=== PATIENT | female | born 2005 | race Caucasian/White ===

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

== ENCOUNTER 2024-12-08 16:06 | Emergency (ER) | payer SELFPAY ==
[2024-12-08] MEDS ORDERED: DERMABOND SKIN ADHESIVE TOP ONE (16:20)
--- NOTE | 2024-12-08 16:33 | EDPHYS ---
Physician Documentation [facility] Name: Marixa Beasley Age: 19 yrs Sex: Female : 2005 Arrival Date: 12/08/2024 Time: 16:06 Bed 11 Private MD: ED Physician Dane Redman HPI: 12/08 16:44 This 19 yrs old Female presents to ER via Ambulatory with complaints of Laceration To kb Hand, Dizziness. 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 Denies any other injuries. 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 - Infectious Disease History:: Denies. - Social history:: Smoking status: Patient denies any tobacco usage or history of. ROS: 16:42 Constitutional: As per HPI kb Exam: 16:42 Constitutional: This is a well developed, well nourished patient who is awake, alert, kb and in no acute distress. Head/Face: Normocephalic, atraumatic. ENT: Moist Mucous membranes Cardiovascular: Regular rate Respiratory: Respirations even and unlabored. No increased work of breathing. Talking in full sentences MS/ Extremity: Pulses equal, no cyanosis. Neurovascular intact. Full, normal range of motion. Neuro: Awake and alert, GCS 15, oriented to person, place, time, and situation. 16:42 Skin: injury, laceration(s), the wound is approximately 1.5 cm(s), of the palm of left hand, that can be described as clean, linear, without bleeding, Vital Signs: 16:20 BP 125 / 80; Pulse 90; Resp 16; Temp 97.8; Pulse Ox 98% ; Weight 39.46 kg; Height 5 ft. db 0 in. ; 16:20 Body Mass Index 16.99 (39.46 kg, 152.4 cm) db Laceration: 16:43 Wound Repair of 1.5cm ( 0.6in ) subcutaneous laceration to palm of left hand. Linear kb shaped.. Distal neuro/vascular/tendon intact. Wound prep: Extensive cleansing with hibiclenz by me, Wound irrigation with saline by me. Skin closed with thin layer Adhesive skin closure using Dermabond. Dressed with steristrips. Patient tolerated well. MDM: 16:10 Medical Screening Exam initiated kb 16:43 Differential diagnosis: superficial laceration, tendon injury, vascular injury. Data kb reviewed: vital signs, nurses notes. Historians other than the Patient: Spouse/Significant Other: significant other. Counseling: I had a detailed discussion with the patient and/or guardian regarding the historical points, exam findings, and any diagnostic results supporting the discharge/admit diagnosis, the need for outpatient follow up, a family practitioner, to return to the emergency department if symptoms worsen or persist or if there are any questions or concerns that arise at home. 16:44 ED course: Sutures were recommended, but pt does not want any needle sticks so she kb requested dermabond. 12/08 16:14 Order name: Dressing - Wound; Complete Time: 16:34 kb 12/08 16:14 Order name: Gloves, Sterile; Complete Time: 16:34 kb Administered Medications: 16:31 Not Given (Patient Refused): lidocaine(1 %) 1 vials 5 ml Infiltration once; to bedside me1 16:31 Not Given (Patient Refused): boostrix tdap0.5 ml IM once; as a single dose me1 Disposition: 17:18 Co-signature as Attending Physician, Dane Redman MD I reviewed the patient's care rt provided by the Advanced Practice Provider and agree with the diagnosis and treatment plan. Disposition Summary: 12/08/24 16:32 Discharge Ordered Notes: Location: Home kb Condition: Stable kb Diagnosis - Laceration without foreign body of left hand kb Followup: kb - With: Emergency Department - When: As needed - Reason: Worsening of condition Followup: kb - With: Private Physician - When: 2 - 3 days - Reason: Recheck today's complaints, Continuance of care, Re-evaluation by your physician Discharge Instructions: - Discharge Summary Sheet kb - Laceration Care, Adult, [id number] kb Forms: - Medication Reconciliation Form kb - Antibiotic Education kb - Prescription Opioid Use kb - Patient Portal Instructions kb - Leadership Thank You Letter kb Signatures: Lori Lockett FNP-C KALIN-Mellisa Oakley, RN RN db Dane Redman MD MD rt Leanna Lowe RN me1 Corrections: (The following items were deleted from the chart) 16:34 16:14 Sutures, Prolene ordered. kb me1 16:35 16:14 Setup Suture Tray ordered. kb me1
--- NOTE | 2024-12-08 16:33 | ER ---
Nurse's Notes [facility] Name: Marixa Beasley Age: 19 yrs Sex: Female : 2005 Arrival Date: 12/08/2024 Time: 16:06 Bed 11 Private MD: Diagnosis: Laceration without foreign body of left hand Presentation: 12/08 16:20 Chief complaint: Patient states: LEFT HAND LACERATION. Coronavirus screen: Client db denies travel out of the [place] in the last 14 days. At this time, the client does not indicate any symptoms associated with coronavirus-19. Ebola Screen: Patient negative for fever greater than or equal to 101.5 degrees Fahrenheit, and additional compatible Ebola Virus Disease symptoms Patient denies exposure to infectious person. Patient denies travel to an Ebola-affected area in the 21 days before illness onset. No symptoms or risks identified at this time. Complicating Factors: There are no complicating factors for this patient. Initial Sepsis Screen: Does the patient meet any 2 criteria? No. Patient's initial sepsis screen is negative. Does the patient have a suspected source of infection? No. Patient's initial sepsis screen is negative. Risk Assessment: Do you want to hurt yourself or someone else? Patient reports no desire to harm self or others. Onset of symptoms was December 08, 2024. 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 - Infectious Disease History:: Denies. - Social history:: Smoking status: Patient denies any tobacco usage or history of. Screenin:32 [facility] ED Fall Risk Assessment (Adult) History of falling in the last 3 months, me1 including since admission No falls in past 3 months (0 pts) Confusion or Disorientation No (0 pts) Intoxicated or Sedated No (0 pts) Impaired Gait No (0 pts) Mobility Assist Device Used No (0 pt) Altered Elimination No (0 pt) Score/Fall Risk Level 0 - 2 = Low Risk Maintained a safe environment, Provided non-skid footwear, Hourly rounding (assess needs \T\ fall precautionary measures) done. Abuse screen: Denies threats or abuse. Nutritional screening: No deficits noted. Tuberculosis screening: No symptoms or risk factors identified. Assessment: 16:32 General: Appears in no apparent distress. 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 Pain: Complains of pain in left hand Pain does not radiate. Pain currently is 7 out of 10 on a pain scale. Quality of pain is described as sharp, Pain began suddenly, Is continuous. Neuro: Level of Consciousness is awake, alert, obeys commands, Oriented to person, place, time, situation, Appropriate for age Reports dizziness, right after cutting herself. Cardiovascular: Patient's skin is warm and dry. Respiratory: Airway is patent Respiratory effort is even, unlabored, Respiratory pattern is regular, symmetrical. GI: No signs and/or symptoms were reported involving the gastrointestinal system. : No signs and/or symptoms were reported regarding the genitourinary system. EENT: No signs and/or symptoms were reported regarding the EENT system. Derm: Wound noted palmar aspect of proximal phalanx of left thumb Wound is laceration. Musculoskeletal: Reports pain in left hand. Injury Description: Laceration is clean, not bleeding. Vital Signs: 16:20 BP 125 / 80; Pulse 90; Resp 16; Temp 97.8; Pulse Ox 98% ; Weight 39.46 kg; Height 5 ft. db 0 in. ; 16:20 Body Mass Index 16.99 (39.46 kg, 152.4 cm) db ED Course: 16:10 Patient arrived in ED. al6 16:10 Lori Lockett FNP-C [facility] kb 16:10 Dane Redman MD is Attending Physician. kb 16:23 Triage completed. db 16:23 Arm band placed on Patient placed in an exam room. db 16:29 Leanna Lowe, LUCILLE is Primary Nurse. me1 16:32 Patient has correct armband on for positive identification. Bed in low position. Call me1 light in reach. Side rails up X2. Provided Education on: POC. Verbalized understanding.. 16:32 No provider procedures requiring assistance completed. Patient did not have IV access me1 during this emergency room visit. Administered Medications: 16:31 Not Given (Patient Refused): lidocaine(1 %) 1 vials 5 ml Infiltration once; to bedside me1 16:31 Not Given (Patient Refused): boostrix tdap0.5 ml IM once; as a single dose me1 Medication: 16:32 VIS not applicable for this client. me1 Outcome: 16:32 Discharge ordered by . ruben 16:38 Discharged to home ambulatory, with family, with significant other, me1 16:38 Condition: stable 16:38 Discharge instructions given to patient, family, significant other, Instructed on discharge instructions, follow up and referral plans. wound care, Demonstrated understanding of instructions, follow-up care, wound care, 16:39 Patient left the ED. me1 Signatures: Lori Lockett, EYELET ROW MARKER-C EYELET ROW MARKER-CkMellisa Hernandez RN RN Leanna Lowe RN RN me1 Libertad Cummings6
[2024-12-08 18:32] VITALS: BP 125/80; TEMP 97.8; O2SAT 98
== END 2024-12-08 16:39 | disposition home or self-care (01) ==
LOC: ER 16:06
DX: S61.412A Laceration without foreign body of left hand, initial encounter (principal)

== ENCOUNTER 2025-03-14 03:55 | Emergency (ER) | payer BC ==
[2025-03-14] MEDS ORDERED: FAMOTIDINE 20 MG/2 ML VIAL IV ONE (04:26)
[2025-03-14] MEDS ORDERED: NA CHLORIDE 0.9% 1,000 ML ONE (04:26)
[2025-03-14] MEDS ORDERED: ONDANSETRON 4 MG/2 ML VIAL ONE (04:26)
[2025-03-14] MEDS ORDERED: KETOROLAC 30 MG/ML INJ ONE (04:26)
[2025-03-14 04:50] LABS: Absolute Lymphocytes (CBC) 1.4 K/uL (0.7-4.9); Hematocrit 37.2 % (36.0-45.0); Hemoglobin 12.8 g/dL (12.0-15.0); MCH 30.5 pg (27.0-35.0); MCHC 34.5 g/dL (32.0-36.0); MCV 88.3 fL (80-100); MPV 8.4 fL (7.6-11.3); Nucleated RBC Absolute Count 0.0 (0-0); Nucleated Red Blood Cells % 0.0 % (0-0); RBC Red Blood Cell Count 4.21 M/uL (3.86-4.86); White Blood Count 10.80 thou/uL (4.3-10.9)
[2025-03-14 05:03] LABS: ALT/SGPT 18.0 U/L (13-56); AST/SGOT 13.0 U/L (15-37); Albumin 4.3 g/dL (3.4-5.0); Albumin/Globulin Ratio 1.2 (1.1-1.8); Alkaline Phosphatase 52.0 U/L (45-117); Anion Gap 11.3 mEq/L (5.0-15.0); BUN Blood Urea Nitrogen 7.0 mg/dL (7-18); Globulin 3.7 g/dL (2.3-3.5); Glucose Level 185.0 mg/dL (74-106); Lipase 24.0 U/L (13-75); Potassium 3.3 mEq/L (3.5-5.1)
[2025-03-14] MEDS ORDERED: PROMETHAZINE INJ 25 MG/ML AMP ONE (05:42)
--- NOTE | 2025-03-14 06:54 | RAD REPORT ---
EXAM DESCRIPTION: Abdomen Pelvis W Contrast CLINICAL HISTORY: ABD PAIN COMPARISON: None Available. TECHNIQUE: CT of the abdomen and pelvis performed following IV administration of iodinated contrast . This exam was performed according to our departmental dose-optimization program, which includes automated exposure control, adjustment of the mA and/or kV according to patient size and/or use of it erative reconstruction technique. FINDINGS: Lung Bases: The visualized lung bases are clear. Bones: No acute osseous abnormality identified. Abdomen: Liver: The liver has normal size and density. Gallbladder: No calcified gallstones. Spleen, Pancreas, and Adrenal Glands: The spleen, pancreas, and adrenal glands are unremarkable. Kidneys: No hydronephrosis or obstructing calculus. Vasculature: The aorta and IVC have normal caliber and position. The portal vein is patent. The pro ximal visceral and renal arteries are patent. Stomach: The stomach and duodenum have normal course. Other: No free intraperitoneal air. Small amount of free fluid. Pelvis: Bladder: Urinary bladder is unremarkable. Bowel: No dilated loops of large or small bowel. Moderate amount of stool. Appendix: Normal appendix. Pelvis: 2.1 cm right ovarian corpus luteal cyst. Uterus is not enlarged. IMPRESSION: 1. 2.1 cm right ovarian corpus luteal cyst. No follow-up imaging for the structure recommended. 2. Small amount of free pelvic fluid. This may be physiologic. Electronically signed by: Ricardo Don DO 03/14/2025 06:40 AM CDT 4ZDM Due to temporary technical issues with the PACS/Nomin[employer] reporting system, reports are being william d by the in-house radiologist without review as a courtesy to ensure prompt reporting the interpreting radiologist is fully responsible for the content of the report. Transcribed Date/Time: 03/14/2025 6:53 AM
--- NOTE | 2025-03-14 06:58 | EDPHYS ---
Physician Documentation [facility] Name: Marixa Beasley Age: 19 yrs Sex: Female : 2005 Arrival Date: 03/14/2025 Time: 03:55 Bed 3 Private MD: ED Physician Moustapha Sanchez HPI: 03/14 04:12 This 19 yrs old Female presents to ER via Unassigned with complaints of Pelvic Pain, ms3 Nausea/Vomiting, Pt has h/o endometriosis. 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 Patient has had consistent vomiting since that time. Patient states her discomfort is a 5/10 and states her stomach feels uneasy. She denies any alleviating or inciting factors.. 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 - Infectious Disease History:: Denies. - Social history:: Smoking status: Patient denies any tobacco usage or history of. ROS: 04:12 Cardiovascular: Negative for chest pain, and palpitations. Respiratory: Negative for ms3 shortness of breath, cough, wheezing, and pleuritic chest pain, 04:12 MS/Extremity: Negative for injury and deformity, Skin: Negative for injury, rash, and discoloration, 04:12 Constitutional: Positive for chills, 04:12 Abdomen/GI: Positive for abdominal pain, nausea and vomiting, Exam: 04:12 Constitutional: This is a well developed, well nourished patient who is awake, alert, ms3 and in no acute distress. Cardiovascular: Regular rate and rhythm with a normal S1 and S2. No gallops, murmurs, or rubs. Normal PMI, no JVD. No pulse deficits. Respiratory: Lungs have equal breath sounds bilaterally, clear to auscultation and percussion. No rales, rhonchi or wheezes noted. No increased work of breathing, no retractions or nasal flaring. 04:12 Skin: Warm, dry with normal turgor. Normal color with no rashes, no lesions, and no evidence of cellulitis. 04:12 Abdomen/GI: Inspection: abdomen appears normal, Bowel sounds: normal, in all quadrants, Palpation: mild abdominal tenderness, in all quadrants, Vital Signs: 04:27 BP 118 / 76; Pulse 74; Resp 16; Temp 98.3; Pulse Ox 99% ; Weight 45.36 kg; Height 5 ft. vc1 0 in. ; Pain 5/10; 06:57 BP 116 / 65; Pulse 65; Resp 18; Pulse Ox 99% on R/A; kd4 04:27 Body Mass Index 19.53 (45.36 kg, 152.4 cm) vc1 04:27 Pain Scale: Adult vc1 Aby Coma Score: 05:53 Eye Response: spontaneous(4). Motor Response: obeys commands(6). Verbal Response: kd4 oriented(5). Total: 15. MDM: 04:12 Medical Screening Exam initiated ms3 04:12 Differential diagnosis: Nonspecific abd pain, gastritis, pancreatitis, appendicitis, ms3 diverticulitis, viral gastroenteritis. 03/14 04:12 Order name: CBC with Diff; Complete Time: 04:56 ms3 03/14 04:12 Order name: CMP; Complete Time: 05:03 ms3 03/14 04:12 Order name: Lipase; Complete Time: 05:03 ms3 03/14 04:12 Order name: Test, Serum; Complete Time: 05:22 ms3 03/14 04:12 Order name: CT Abd/Pelvis - IV Contrast Only ms3 03/14 04:12 Order name: IV Saline Lock; Complete Time: 04:39 ms3 03/14 04:12 Order name: Labs collected and sent; Complete Time: 04:39 ms3 Administered Medications: 04:33 Drug: Famotidine IVP 20 mg IVP once; dilute with 10 mL 0.9% NaCl; give over 2 minutes kd4 Route: IVP; Site: left antecubital; 06:59 Follow up: Response: No adverse reaction kd4 04:33 Drug: TORadol - Ketorolac IVP 15 mg IVP once Route: IVP; Site: left antecubital; kd4 06:59 Follow up: Response: No adverse reaction kd4 04:33 Drug: Ondansetron IVP 4 mg IVP once; over 2 minutes Route: IVP; Site: left antecubital; kd4 06:59 Follow up: Response: No adverse reaction kd4 04:33 Drug: NS 0.9% IV 1000 ml IV at 1 bolus Per protocol; to be given as a bolus over 60 kd4 minutes Route: IV; Rate: 1 bolus; Site: left antecubital; 06:59 Follow up: IV Status: Completed infusion kd4 05:49 Drug: Promethazine IM 12.5 mg IM once Route: IM; Site: left deltoid; kd4 06:59 Follow up: Response: No adverse reaction kd4 Disposition Summary: 03/14/25 06:58 Discharge Ordered Notes: Location: Home ms3 Condition: Stable ms3 Diagnosis - Nausea with vomiting, unspecified ms3 - Abdominal pain, unspecified ms3 Followup: ms3 - With: Adelfo Bernabe DO - When: 2 - 3 days - Reason: Recheck today's complaints Discharge Instructions: - Discharge Summary Sheet ms3 - Abdominal Pain, Adult ms3 - Nausea and Vomiting, Adult ms3 Forms: - Medication Reconciliation Form ms3 - Antibiotic Education ms3 - Prescription Opioid Use ms3 - Patient Portal Instructions ms3 - Leadership Thank You Letter ms3 Prescriptions: - promethazine 12.5 mg Rectal suppository - insert 1 suppository RECTAL route every 6 hours as needed for nausea and ms3 vomiting; 10 suppository; Refills: 0, Product Selection Permitted Signatures: Dispatcher [employer] EDMS Moustapha Sanchez DO DO ms3 Kitty Arango RN RN vc1 Reece Oreilly RN RN kd4 Corrections: (The following items were deleted from the chart) 04:30 04:05 Pelvis Complete+US.RAD.BRZ ordered. EDMS EDMS
--- NOTE | 2025-03-14 06:58 | ER ---
Nurse's Notes [facility] Name: Marixa Beasley Age: 19 yrs Sex: Female : 2005 Arrival Date: 03/14/2025 Time: 03:55 Bed 3 Private MD: Diagnosis: Nausea with vomiting, unspecified;Abdominal pain, unspecified Presentation: 03/14 04:27 Chief complaint: Patient states: Stomach feels really uncomfortable and I was up all vc1 night vomiting. Coronavirus screen: Client denies travel out of the [place] in the last 14 days. At this time, the client does not indicate any symptoms associated with coronavirus-19. Ebola Screen: Patient negative for fever greater than or equal to 101.5 degrees Fahrenheit, and additional compatible Ebola Virus Disease symptoms Patient denies exposure to infectious person. Patient denies travel to an Ebola-affected area in the 21 days before illness onset. No symptoms or risks identified at this time. Initial Sepsis Screen: Does the patient meet any 2 criteria? No. Patient's initial sepsis screen is negative. Does the patient have a suspected source of infection? No. Patient's initial sepsis screen is negative. Risk Assessment: Do you want to hurt yourself or someone else? Patient reports no desire to harm self or others. Onset of symptoms was March 13, 2025. 04:27 Method Of Arrival: Ambulatory vc1 04:27 Acuity: CÉSAR 3 vc1 Triage Assessment: 04:33 General: Appears uncomfortable, slender, well groomed, well developed, well nourished, vc1 Behavior is calm, cooperative, appropriate for age. Pain: Complains of pain in abdomen Pain does not radiate. Pain currently is 5 out of 10 on a pain scale. Quality of pain is described as aching. EENT: No deficits noted. No signs and/or symptoms were reported regarding the EENT system. Neuro: Level of Consciousness is awake, alert, obeys commands, Oriented to person, place, time, situation, Appropriate for age. Cardiovascular: Patient's skin is warm and dry. Respiratory: Airway is patent Respiratory effort is even, unlabored, Respiratory pattern is regular, symmetrical. GI: Reports lower abdominal pain, upper abdominal pain, vomiting. : No deficits noted. No signs and/or symptoms were reported regarding the genitourinary system. Derm: Skin is intact, is healthy with good turgor, Skin is dry, Skin is normal, Skin temperature is warm. Musculoskeletal: Circulation, motion, and sensation intact. Range of motion: intact in all extremities. 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 - Infectious Disease History:: Denies. - Social history:: Smoking status: Patient denies any tobacco usage or history of. Screenin:32 Abuse screen: Denies threats or abuse. Nutritional screening: No deficits noted. vc1 Tuberculosis screening: No symptoms or risk factors identified. 05:53 [facility] ED Fall Risk Assessment (Adult) History of falling in the last 3 months, kd4 including since admission No falls in past 3 months (0 pts) Confusion or Disorientation No (0 pts) Intoxicated or Sedated No (0 pts) Impaired Gait No (0 pts) Mobility Assist Device Used No (0 pt) Altered Elimination No (0 pt) Score/Fall Risk Level 0 - 2 = Low Risk Oriented to surroundings, Maintained a safe environment, Educated pt \T\ family on fall prevention, incl call for assistance when getting out of bed, Assessed \T\ reinforced patient's understanding of fall precautions. Assessment: 05:53 GI: Reports lower abdominal pain, nausea, vomiting. kd4 06:57 GI: Reports lower abdominal pain, nausea, vomiting. kd4 07:08 General: Patient verbalizes understanding of d/c instruction. kd4 Vital Signs: 04:27 BP 118 / 76; Pulse 74; Resp 16; Temp 98.3; Pulse Ox 99% ; Weight 45.36 kg; Height 5 ft. vc1 0 in. ; Pain 5/10; 06:57 BP 116 / 65; Pulse 65; Resp 18; Pulse Ox 99% on R/A; kd4 04:27 Body Mass Index 19.53 (45.36 kg, 152.4 cm) vc1 04:27 Pain Scale: Adult vc1 Aby Coma Score: 05:53 Eye Response: spontaneous(4). Motor Response: obeys commands(6). Verbal Response: kd4 oriented(5). Total: 15. ED Course: 03:59 Patient arrived in ED. [email or web address] 04:03 Moustapha Sanchez DO is Attending Physician. ms3 04:29 Triage completed. vc1 04:31 Arm band placed on left wrist. vc1 05:53 Patient has correct armband on for positive identification. Call light in reach. Side kd4 rails up X2. Pulse ox on. NIBP on. 05:53 No provider procedures requiring assistance completed. Inserted saline lock: 22 gauge kd4 in left antecubital area, using aseptic technique. 05:55 CT Abd/Pelvis - IV Contrast Only In Process Unspecified. EDMS 06:58 Adelfo Bernabe DO is Referral Physician. ms3 07:08 Provided Education on: D/c instruction. kd4 07:08 IV discontinued. kd4 Administered Medications: 04:33 Drug: Famotidine IVP 20 mg IVP once; dilute with 10 mL 0.9% NaCl; give over 2 minutes kd4 Route: IVP; Site: left antecubital; 06:59 Follow up: Response: No adverse reaction kd4 04:33 Drug: TORadol - Ketorolac IVP 15 mg IVP once Route: IVP; Site: left antecubital; kd4 06:59 Follow up: Response: No adverse reaction kd4 04:33 Drug: Ondansetron IVP 4 mg IVP once; over 2 minutes Route: IVP; Site: left antecubital; kd4 06:59 Follow up: Response: No adverse reaction kd4 04:33 Drug: NS 0.9% IV 1000 ml IV at 1 bolus Per protocol; to be given as a bolus over 60 kd4 minutes Route: IV; Rate: 1 bolus; Site: left antecubital; 06:59 Follow up: IV Status: Completed infusion kd4 05:49 Drug: Promethazine IM 12.5 mg IM once Route: IM; Site: left deltoid; kd4 06:59 Follow up: Response: No adverse reaction kd4 Medication: 05:53 VIS not applicable for this client. kd4 Outcome: 06:57 Condition: stable kd4 06:58 Discharge ordered by . ms3 07:07 Discharged to home ambulatory, with family, kd4 07:07 Discharge instructions given to patient, Instructed on discharge instructions, follow up and referral plans. Demonstrated understanding of instructions, follow-up care, Prescriptions given X 07:09 Patient left the ED. kd4 Signatures: Dispatcher [employer] EDMS Moustapha Sanchez DO DO ms3 Shahnaz Alva jj6 Kitty Arango RN RN vc1 Reece Oreilly RN RN kd4
[2025-03-14 07:41] VITALS: O2SAT 99
[2025-03-14 07:42] VITALS: BP 118/76; TEMP 98.3
== END 2025-03-14 07:09 | disposition home or self-care (01) ==
LOC: ER 03:55
DX: R11.2 Nausea with vomiting, unspecified (principal); R10.30 Lower abdominal pain, unspecified
CPT/HCPCS: 96361; 85025; 36415; 84703; 83690; 80053; 74177; 96375; 96372; 96374; 99284; Q9967; J2550; J2405; J7030

== ENCOUNTER 2025-03-15 22:04 | Inpatient (IN) | payer BC, MEDICARE ==
[2025-03-15] MEDS ORDERED: NA CHLORIDE 0.9% 1,000 ML ONE (22:35)
[2025-03-15 23:01] LABS: Urine Microscopic Reflex YN NO UMIC
[2025-03-15 23:03] LABS: Urine Culture Reflex Order REFLEXED
[2025-03-15 23:06] LABS: Absolute Lymphocytes (CBC) 1.7 K/uL (0.7-4.9); Hematocrit 35.8 % (36.0-45.0); Hemoglobin 12.2 g/dL (12.0-15.0); MCH 30.3 pg (27.0-35.0); MCHC 34.1 g/dL (32.0-36.0); MCV 88.9 fL (80-100); MPV 8.8 fL (7.6-11.3); Nucleated RBC Absolute Count 0.0 (0-0); Nucleated Red Blood Cells % 0.0 % (0-0); RBC Red Blood Cell Count 4.03 M/uL (3.86-4.86); White Blood Count 12.50 thou/uL (4.3-10.9)
[2025-03-15] MEDS ORDERED: CEFTRIAXONE 1000 MG/VIAL ONE (23:29)
[2025-03-15] MEDS ORDERED: NA CHLORIDE 0.9% 50 ML ONE (23:30)
[2025-03-15 23:37] LABS: ALT/SGPT 20.0 U/L (13-56); AST/SGOT 29.0 U/L (15-37); Albumin 4.5 g/dL (3.4-5.0); Albumin/Globulin Ratio 1.3 (1.1-1.8); Alkaline Phosphatase 48.0 U/L (45-117); Anion Gap 12.8 mEq/L (5.0-15.0); BUN Blood Urea Nitrogen 7.0 mg/dL (7-18); Globulin 3.4 g/dL (2.3-3.5); Glucose Level 112.0 mg/dL (74-106); Magnesium 2.2 mg/dL (1.6-2.4); Potassium 2.8 mEq/L (3.5-5.1)
[2025-03-16] MEDS ORDERED: POTASSIUM 25 MEQ EFFERV TAB ONE (00:02)
[2025-03-16] MEDS ORDERED: PROMETHAZINE INJ 25 MG/ML AMP ONE (00:25)
[2025-03-16] MEDS ORDERED: NA CHLORIDE 0.9% 1,000 ML ONE (00:25)
--- NOTE | 2025-03-16 00:38 | EDPHYS ---
Physician Documentation [facility] Name: Marixa Beasley Age: 19 yrs Sex: Female : 2005 Arrival Date: 03/15/2025 Time: 22:04 Bed 17 Private MD: ED Physician Williams Henry HPI: 03/15 22:44 This 19 yrs old Female presents to ER via Ambulatory with complaints of dr5 Abdominal Pain, Nausea/Vomiting. 22:44 The patient presents with abdominal pain in the epigastric area. Onset: The dr5 symptoms/episode began/occurred 2 day(s) ago. The patient has been recently seen by a physician: yesterday. 22:47 . 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 Patient reports that she was seen yesterday at this ER as well as [place] [facility] the morning of 03/15/25. [place] [facility] reported that she had hypokalemia and low magnesium. Patient reports that she was at home for couple hours without any pain or nausea and began having nausea again after drinking water. Patient reports that she was also treated for urinary tract infection this morning.. 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 - Infectious Disease History:: Denies. - Social history:: Smoking status: Reported history of juuling and/or vaping. ROS: 23:38 Constitutional: as per hpi dr5 Exam: 23:38 Constitutional: This is a well developed, well nourished patient who is awake, alert, dr5 and in no acute distress. Head/Face: Normocephalic, atraumatic. Eyes: Pupils equal round and reactive to light, extra-ocular motions intact. Lids and lashes normal. Conjunctiva and sclera are non-icteric and not injected. Cornea within normal limits. Periorbital areas with no swelling, redness, or edema. Neck: Trachea midline, no thyromegaly or masses palpated, and no cervical lymphadenopathy. Supple, full range of motion without nuchal rigidity, or vertebral point tenderness. No Meningismus. Chest/axilla: Normal chest wall appearance and motion. Nontender with no deformity. No lesions are appreciated. Cardiovascular: Regular rate and rhythm with a normal S1 and S2. Normal PMI, no JVD. No pulse deficits. Respiratory: Lungs have equal breath sounds bilaterally, clear to auscultation. No rales, rhonchi or wheezes noted. No increased work of breathing, no retractions or nasal flaring. Back: No spinal tenderness. No costovertebral tenderness. Full range of motion. Skin: Warm, dry with normal turgor. Normal color with no rashes, no lesions, and no evidence of cellulitis. MS/ Extremity: Pulses equal, no cyanosis. Neurovascular intact. Full, normal range of motion. Neuro: Awake and alert, GCS 15, oriented to person, place, time, and situation. Cranial nerves II-XII grossly intact. Motor strength 5/5 in all extremities. Sensory grossly intact. Cerebellar exam normal. Normal gait. 23:38 Abdomen/GI: Inspection: abdomen appears normal, Bowel sounds: normal, Palpation: abdomen is soft and non-tender, in all quadrants, soft, in all quadrants, Vital Signs: 22:24 BP 127 / 68; Pulse 112; Resp 18; Temp 97.8; Pulse Ox 100% on R/A; Weight 40.82 kg; al5 Height 5 ft. 0 in. ; 22:30 BP 128 / 80; Pulse 64; Resp 17; Pulse Ox 100% on R/A; al5 23:00 BP 115 / 76; Pulse 81; Resp 20; Pulse Ox 98% on R/A; al5 23:30 BP 100 / 61; Pulse 75; Resp 19; Pulse Ox 98% on R/A; al5 03/16 00:00 BP 100 / 51; Pulse 63; Resp 18; Pulse Ox 99% on R/A; al5 01:00 BP 129 / 89; Pulse 61; Resp 15; Pulse Ox 100% on R/A; al5 03/15 22:24 Body Mass Index 17.58 (40.82 kg, 152.4 cm) al5 MDM: 03/15 22:09 Medical Screening Exam initiated dr5 03/16 00:34 Differential diagnosis: appendicitis, gastritis, urinary tract infection, Hypokalemia, dr5 electrolyte abnormality, gastroenteritis, cannabinoid hyperemesis syndrome. Data reviewed: vital signs, nurses notes, lab test result(s), CBC, white blood cell count, hemoglobin, hematocrit, platelets, electrolytes, sodium, potassium, chloride, serum bicarbonate, BUN, creatinine, serum glucose, urinalysis, bacteruria. Consideration of Admission/Observation Patient was admitted/placed on observation. Management of patient was discussed with the following: Hospitalist: Dr. Nicholas. I considered the following discharge prescriptions or medication management in the emergency department I discussed and recommended Over The Counter medications, Medications were administered in the Emergency Department. See MAR. Test considered but Not performed: CT: CT scan was considered but deferred due to being done yesterday.. Historians other than the Patient: Spouse/Significant Other: at bedside. Care significantly affected by the following chronic conditions: Thyroid Issue, Hashimotos Disease. Care significantly affected by the following Social Determinants of Health: Poor access to healthcare and/or lack of insurance, Poor access to transportation, Problems related to employment. Counseling: I had a detailed discussion with the patient and/or guardian regarding the historical points, exam findings, and any diagnostic results supporting the discharge/admit diagnosis, the presence of at least one elevated blood pressure reading (>120/80) during this emergency department visit, lab results, the need for further work-up and treatment in the hospital. Medication response: Potassium p.o.. Patient reported severe abdominal pain with nausea after administration of potassium. Response to treatment: the patient's symptoms have mildly improved after treatment. Special discussion: Based on the patient's Hx, exam, and Dx evaluation, there is no indication for emergent surgery or inpatient Tx. It is understood by the patient/guardian that if the Sx's persist or worsen they need to return immediately for re-evaluation. ED course: This is patient's third hospital visit in 24 hours. Patient was seen and present for yesterday, went to [place] ER this morning, and returned today for same symptoms. Patient's potassium level is lower. Will admit for p.o. intolerance as well as urinary tract infection.. 03/15 22:33 Order name: CBC with Diff; Complete Time: 23:28 dr5 03/15 22:33 Order name: CMP; Complete Time: 23:37 dr5 03/15 22:33 Order name: UA Rfx Tee Cult if indicated; Complete Time: 23:06 dr5 03/15 22:33 Order name: Magnesium; Complete Time: 23:37 dr5 03/15 23:06 Order name: Urine Culture EDMS 03/16 00:48 Order name: CBC with Automated Diff EDMS 03/16 00:48 Order name: CBC with Automated Diff EDMS 03/16 00:48 Order name: Comprehensive Metabolic Panel EDMS 03/16 00:48 Order name: Comprehensive Metabolic Panel EDMS Administered Medications: 03/15 22:43 Drug: NS 0.9% IV 1000 ml IV at 1000 ml once; to be given as a bolus over 60 minutes al5 Route: IV; Rate: 1000 ml; Site: left antecubital; 03/16 01:14 Follow up: Response: No adverse reaction; IV Status: Completed infusion; IV Intake: al5 1000ml 03/15 22:43 Drug: Droperidol IVP 1.25 mg IVP once Route: IVP; Site: right antecubital; al5 03/16 00:05 Follow up: Response: No adverse reaction; Pain is decreased; Nausea is decreased al5 03/15 23:35 Drug: Rocephin IV 1 grams IV at per protocol once; Given slow IV push per pharmacy al5 instructions Route: IV; Rate: per protocol; Site: left antecubital; 03/16 01:13 Follow up: Response: No adverse reaction; IV Status: Completed infusion; IV Intake: [id number] 00:04 Not Given (Physician Discretion): potassium [id number] meq PO once al5 00:05 Drug: Potassium PO Effervescent Tablet 50 mEq PO once; dissolve in 4 ounces of water or al5 juice Route: PO; 00:31 Follow up: Response: No adverse reaction; Nausea is increased; Nausea is increased; al5 provider notified and aware, nausea med order placed. patient initally c/o n/v unable to tolerate food and water upon triage 00:05 CANCELLED (Duplicate Order): potassiumeffervescent tablet 50 meq PO once; dissolve in 4 dr5 ounces of water or juice 00:30 Drug: Phenergan 25 mg IV at per protocol once; administer 30-60 minutes before al5 traveling {Note: added to rest of patient previous bag of fluids, around 300 mL of NS per provider discretion.} Route: IV; Rate: per protocol; Site: left antecubital; Follow up: Response: No adverse reaction; Nausea unchanged; IV Status: Completed al5 infusion; IV Intake: 300ml 01: Drug: NS 0.9% IV 1000 ml IV at 1000 ml once; to be given as a bolus over 60 minutes al5 Route: IV; Rate: 1000 ml; Site: left antecubital; Follow up: Response: No adverse reaction; IV Status: Infusion continued upon admission al5 01: Drug: Droperidol IVP 1.25 mg IVP once Route: IVP; Site: left antecubital; al5 : Follow up: Response: No adverse reaction al5 Disposition Summary: 03/16/25 00:38 Hospitalization Ordered Notes: Hospitalization Status: Inpatient Admission dr5 Provider: Samir Nicholas Condition: Stable dr5 Problem: new dr5 Symptoms: have worsened dr5 Bed/Room Type: Standard dr5 Location: Telemetry/MedSurg (Inpatient)(03/16/25 10:05) Room Assignment: 422(03/16/25 10:05) Diagnosis - Hypokalemia dr5 - UTI/ Urinary tract infection, site not specified dr5 - Nausea with vomiting, unspecified dr5 Forms: - Medication Reconciliation Form dr5 - SBAR form dr5 - Leadership Thank You Letter dr5 Signatures: Dispatcher [employer] EDRowan Domingo RN RN Graciela Brito RN RN Sarah Yang RN RN al5 Zen Chacko FNP-C FNP-5 Corrections: (The following items were deleted from the chart) 03/15 22:33 22:33 CBC+H.LAB.BRZ ordered. EDMS EDMS 22:33 22:33 COMPREHENSIVE METABOLIC PANEL+C.LAB.BRZ ordered. EDMS EDMS 22:33 22:33 UA Rfx Tee Cult if indicated+U.LAB.BRZ ordered. EDMS EDMS 22:33 22:33 MAGNESIUM+C.LAB.BRZ ordered. EDMS EDMS 03/16 00:05 00:05 Potassium PO Effervescent Tablet 50 mEq PO once; dissolve in 4 ounces of water or dr5 juice ordered. dr5 01:25 00:38 Telemetry/MedSurg (Inpatient) dr5 cg 01:25 00:38 dr5 cg 10:05 01:25 [facility] ER HOLD cg hb 10:05 01:25 ERHOLD- cg hb
--- NOTE | 2025-03-16 00:38 | ER ---
Nurse's Notes [facility] Name: Marixa Beasley Age: 19 yrs Sex: Female : 2005 Arrival Date: 03/15/2025 Time: 22:04 Bed 17 Private MD: Diagnosis: Hypokalemia;UTI/ Urinary tract infection, site not specified;Nausea with vomiting, unspecified Presentation: 03/15 22:24 Chief complaint: Patient states: c/o generalized abdominal pain along with n/v for the al5 past 2-3 days. has been seen multiple times for this recently and was told she had a L ovarian cyst, UTI, along with low electrolytes. Coronavirus screen: At this time, the client does not indicate any symptoms associated with coronavirus-19. Ebola Screen: No symptoms or risks identified at this time. Initial Sepsis Screen: Does the patient meet any 2 criteria? HR > 90 bpm. No. Patient's initial sepsis screen is negative. Does the patient have a suspected source of infection? No. Patient's initial sepsis screen is negative. Risk Assessment: Do you want to hurt yourself or someone else? Patient reports no desire to harm self or others. Onset of symptoms was March 12, 2025. 22:24 Method Of Arrival: Ambulatory al5 22:24 Acuity: CÉSAR 3 al5 Triage Assessment: 22:26 General: Appears in no apparent distress. uncomfortable, ill, slender, well groomed, al5 Behavior is cooperative, restless. Pain: Complains of pain in abdomen. EENT: No signs and/or symptoms were reported regarding the EENT system. Neuro: Level of Consciousness is awake, alert, obeys commands, Oriented to person, place, time, situation. Cardiovascular: Patient's skin is warm and dry. Respiratory: Airway is patent Respiratory effort is even, unlabored, Respiratory pattern is regular, symmetrical. GI: Abdomen is flat, non-distended, Abd is soft Abdomen is tender to palpation X 4 quads. Reports lower abdominal pain, upper abdominal pain, nausea, vomiting. : No signs and/or symptoms were reported regarding the genitourinary system. Derm: Skin is intact, is healthy with good turgor, Skin is dry, Skin is pale, Skin temperature is warm. Musculoskeletal: Circulation, motion, and sensation intact. Range of motion: intact in all extremities. 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 - Infectious Disease History:: Denies. - Social history:: Smoking status: Reported history of juuling and/or vaping. Screenin:28 [facility] ED Fall Risk Assessment (Adult) History of falling in the last 3 months, al5 including since admission No falls in past 3 months (0 pts) Confusion or Disorientation No (0 pts) Intoxicated or Sedated No (0 pts) Impaired Gait No (0 pts) Mobility Assist Device Used No (0 pt) Altered Elimination No (0 pt) Score/Fall Risk Level 0 - 2 = Low Risk Oriented to surroundings, Maintained a safe environment, Hourly rounding (assess needs \T\ fall precautionary measures) done. Abuse screen: Denies threats or abuse. Denies injuries from another. Nutritional screening: No deficits noted. Tuberculosis screening: No symptoms or risk factors identified. Assessment: 22:28 Reassessment: see triage assessment. al5 22:43 Reassessment: placed patient on nuclear monitoring technician at this time. al5 23:30 Reassessment: Patient appears in no apparent distress at this time. Patient and/or ss12 family updated on plan of care and expected duration. Pain level reassessed. Patient is alert, oriented x 3, equal unlabored respirations, skin warm/dry/pink. 03/16 00:20 Reassessment: Patient appears in no apparent distress at this time. Patient and/or al5 family updated on plan of care and expected duration. Pain level reassessed. Patient is alert, oriented x 3, equal unlabored respirations, skin warm/dry/pink. completed PO challenge. patient c/o nausea and is crying/screaming post potassium drink. PO challenge failed, notified provider. 01:14 Reassessment: Patient appears in no apparent distress at this time. No changes from al5 previously documented assessment. Patient and/or family updated on plan of care and expected duration. Pain level reassessed. Patient is alert, oriented x 3, equal unlabored respirations, skin warm/dry/pink. patient admitted, see [facility]. Vital Signs: 03/15 22:24 BP 127 / 68; Pulse 112; Resp 18; Temp 97.8; Pulse Ox 100% on R/A; Weight 40.82 kg; al5 Height 5 ft. 0 in. ; 22:30 BP 128 / 80; Pulse 64; Resp 17; Pulse Ox 100% on R/A; al5 23:00 BP 115 / 76; Pulse 81; Resp 20; Pulse Ox 98% on R/A; al5 23:30 BP 100 / 61; Pulse 75; Resp 19; Pulse Ox 98% on R/A; al5 03/16 00:00 BP 100 / 51; Pulse 63; Resp 18; Pulse Ox 99% on R/A; al5 01:00 BP 129 / 89; Pulse 61; Resp 15; Pulse Ox 100% on R/A; al5 03/15 22:24 Body Mass Index 17.58 (40.82 kg, 152.4 cm) al5 ED Course: 03/15 22:06 Patient arrived in ED. gm2 22:07 [facility]ack[facility]C [facility] 22:07 Williams Henry MD is Attending Physician. dr5 22:24 Uzair Dunne, LUCILLE is Primary Nurse. ss12 22:26 Triage completed. al5 22:26 Arm band placed on right wrist. Patient placed in the treatment room, in view of staff al5 members, on pulse oximetry. 22:27 Inserted saline lock: 20 gauge in left antecubital area, using aseptic technique. Blood ts3 collected. Flushed with 10 mL NS. 22:28 No provider procedures requiring assistance completed. al5 22:28 Patient has correct armband on for positive identification. Bed in low position. Call al5 light in reach. Side rails up X2. Provided Education on: plan of care. 22:40 Initial lab(s) drawn, by golf course laborer, sent to lab. ts3 22:40 Urine collected: clean catch specimen, sent to lab. ts3 03/16 00:37 Samir Nicholas MD is Hospitalizing Provider. dr5 01:14 Patient admitted, IV remains in place. al5 Administered Medications: 03/15 22:43 Drug: NS 0.9% IV 1000 ml IV at 1000 ml once; to be given as a bolus over 60 minutes al5 Route: IV; Rate: 1000 ml; Site: left antecubital; 03/16 01:14 Follow up: Response: No adverse reaction; IV Status: Completed infusion; IV Intake: al5 1000ml 03/15 22:43 Drug: Droperidol IVP 1.25 mg IVP once Route: IVP; Site: right antecubital; al5 03/16 00:05 Follow up: Response: No adverse reaction; Pain is decreased; Nausea is decreased al5 03/15 23:35 Drug: Rocephin IV 1 grams IV at per protocol once; Given slow IV push per pharmacy al5 instructions Route: IV; Rate: per protocol; Site: left antecubital; 03/16 01:13 Follow up: Response: No adverse reaction; IV Status: Completed infusion; IV Intake: [id number] 00:04 Not Given (Physician Discretion): potassium [id number] meq PO once al5 00:05 Drug: Potassium PO Effervescent Tablet 50 mEq PO once; dissolve in 4 ounces of water or al5 juice Route: PO; 00:31 Follow up: Response: No adverse reaction; Nausea is increased; Nausea is increased; al5 provider notified and aware, nausea med order placed. patient initally c/o n/v unable to tolerate food and water upon triage 00:05 CANCELLED (Duplicate Order): potassiumeffervescent tablet 50 meq PO once; dissolve in 4 dr5 ounces of water or juice 00:30 Drug: Phenergan 25 mg IV at per protocol once; administer 30-60 minutes before al5 traveling {Note: added to rest of patient previous bag of fluids, around 300 mL of NS per provider discretion.} Route: IV; Rate: per protocol; Site: left antecubital; :13 Follow up: Response: No adverse reaction; Nausea unchanged; IV Status: Completed al5 infusion; IV Intake: 300ml 01:13 Drug: NS 0.9% IV 1000 ml IV at 1000 ml once; to be given as a bolus over 60 minutes al5 Route: IV; Rate: 1000 ml; Site: left antecubital; :13 Follow up: Response: No adverse reaction; IV Status: Infusion continued upon admission al5 01:13 Drug: Droperidol IVP 1.25 mg IVP once Route: IVP; Site: left antecubital; al5 01:13 Follow up: Response: No adverse reaction al5 Medication: 03/15 22:28 VIS not applicable for this client. al5 Intake: 03/16 01:13 IV: 300ml; Total: 300ml. al5 01:13 IV: 50ml; Total: 350ml. al5 01:14 IV: 1000ml; Total: 1350ml. al5 Outcome: 00:38 Decision to Hospitalize by Provider. dr5 01:14 Admitted to ER Hold. Please see [facility] for further documentation. al5 01:14 Condition: stable 01:14 Instructed on the need for admit, 10:53 Admitted to Tele accompanied by nurse, via wheelchair, room 422, Report called to by bp Gregg RN 10:53 Condition: stable 10:53 Instructed on the need for admit, 10:54 Patient left the ED. bp Signatures: River Avilez, RN RN Maryanne Jj 2 Sarah Yang RN RN al5 Zen Chacko, LOG LOADER-C LOG LOADER-Cdr5 Chelle Chávez ts3 Uzair Dunne, RN RN ss12
[2025-03-16] MEDS ORDERED: ACETAMINOPHEN 325 MG TABLET PO PRN (00:42)
--- NOTE | 2025-03-16 00:48 | P.HP ---
Certification for Inpatient Patient admitted to: Observation With expected LOS: <2 Midnights Practitioner: I am a practitioner with admitting privileges, knowledge of patient current condition, hospital course, and medical plan of care. 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 Patient had multiple ER visits for the same complaint but was not getting better. Denies any chest pain shortness of breath. No diarrhea. No sick contacts. Patient was assessed in the ER and found to have UTI and hypokalemia and was admitted for further management Allergies azithromycin Allergy (Unverified 12/16/16 04:10) Unknown Penicillins Allergy (Unverified 11/01/14 21:41) Unknown Erythromycin Allergy (Uncoded 10/12/16 21:58) Unknown Home Medications: NK [No Home Meds] 03/16/25 - Past Medical/Surgical History Past Medical History: Reviewed- Non-Contributory Past Surgical History: Reviewed- Non-Contributory - Social History Smoking Status: Never smoker Review of Systems 10-point ROS is otherwise unremarkable Physical Examination - Vital Signs Temperature: 98.4 F Blood Pressure: 126/67 Pulse: 78 Respirations: 18 Pulse Ox (%): 94 - Physical Exam General: Alert, In no apparent distress, Cooperative HEENT: Atraumatic, Normocephalic Neck: Supple Respiratory: Clear to auscultation bilaterally, Normal air movement Cardiovascular: Regular rate/rhythm, Normal S1 S2 Capillary refill: <2 Seconds Gastrointestinal: Soft and benign, W/out hepatosplenomegaly Musculoskeletal: No clubbing, No swelling Integumentary: No rashes Neurological: Other (Alert awake nonfocal) Lymphatics: No axilla or inguinal lymphadenopathy - Studies Laboratory Data (last 24 hrs) 03/15/25 03/15/25 22:25 22:25 WBC 12.50 H Hgb 12.2 Hct 35.8 L Plt Count 369 Sodium 137 Potassium 2.8 L BUN 7 Creatinine 0.96 Glucose 112 H Magnesium 2.2 Total Bilirubin 0.9 AST 29 ALT 20 Alkaline Phosphatase 48 Assessment and Plan - Plan Intractable nausea vomiting Zofran as needed IV hydration Monitor closely on telemetry Hypokalemia Replace electrolytes Monitor closely on telemetry UTI Started on IV antibiotic Will obtain cultures Change antibiotic as per sensitivity GI/DVT prophylaxis Advanced directive full code Discharge Plan: Home Plan to discharge in: 48 Hours - Advance Directives Does patient have a Living Will: No Does patient have a Durable POA for Healthcare: No - Code Status/Comfort Care Code Status: Full Code Time Spent Managing Pts Care (In Minutes): 48
[2025-03-16 01:41] VITALS: BMI 17.6
[2025-03-16] MEDS ORDERED: AZTREONAM 1 GM/VIAL ONE ×2 (03:19→09:40)
[2025-03-16] MEDS ORDERED: NA CHLORIDE 0.9% 100 ML ONE ×2 (03:20→09:44)
[2025-03-16] MEDS ORDERED: D5 0.45 NS 1,000 ML IV ONE (03:20)
[2025-03-16] MEDS: AZTREONAM 1 GM in NA CHLORIDE 0.9% 100 ML IV SCH (03:28)
[2025-03-16] MEDS: D5 0.45 NS 1,000 ML IV SCH (03:28)
[2025-03-16] MEDS ORDERED: ONDANSETRON 4 MG/2 ML VIAL ONE (04:39)
[2025-03-16] MEDS: ONDANSETRON 4 MG/2 ML VIAL IV PRN (04:43)
--- NOTE | 2025-03-16 07:09 | P.PN ---
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 Reports seeing a physician multiple times recently. Has been told shes had ovarian cyst, UTI, electrolyte abnormalities Seen at [facility] ER on 03/15 for similar symptoms. Had abnormal UA and Had urine culture done (<24 hours ago) Was prescribed 10 days of Cefdinir in addition to Promethazine OSH CT done yesterday showed nonspecific Mild periportal edema, R ovarian cyst with physiologic free fluid Given IVF, IV rocephin, Potassium in ED. UA questionable, could be dehydration Aztreonam (03/16-) started on admit Continue IV fluids Monitor and replete electrolytes as needed Confirm home meds, restart as appropriate repeat labs pending advance diet VTE: SCD Code: Full Dispo: Home Pending improvement of symptoms/electrolytes Time Spent Managing Pts Care (In Minutes): 55
[2025-03-16 12:00] LABS: Absolute Lymphocytes (CBC) 2.4 K/uL (0.7-4.9); Hematocrit 36.9 % (36.0-45.0); Hemoglobin 12.4 g/dL (12.0-15.0); MCH 30.1 pg (27.0-35.0); MCHC 33.6 g/dL (32.0-36.0); MCV 89.6 fL (80-100); MPV 8.2 fL (7.6-11.3); Nucleated RBC Absolute Count 0.0 (0-0); Nucleated Red Blood Cells % 0.0 % (0-0); RBC Red Blood Cell Count 4.11 M/uL (3.86-4.86); White Blood Count 12.50 thou/uL (4.3-10.9)
[2025-03-16 12:27] LABS: Anion Gap 8.2 mEq/L (5.0-15.0); BUN Blood Urea Nitrogen 3.0 mg/dL (7-18); Glucose Level 114.0 mg/dL (74-106); Potassium 3.2 mEq/L (3.5-5.1)
[2025-03-16 12:28] LABS: ALT/SGPT 24.0 U/L (13-56); AST/SGOT 24.0 U/L (15-37); Albumin 4.0 g/dL (3.4-5.0); Albumin/Globulin Ratio 1.1 (1.1-1.8); Alkaline Phosphatase 43.0 U/L (45-117); Globulin 3.6 g/dL (2.3-3.5); Magnesium 2.3
[2025-03-16 12:29] LABS: Thyroid Stimulating Hormone 2.55 uIU/mL (0.358-3.740)
[2025-03-16] MEDS: KCL 20 MEQ/100 mL IVPB 20 MEQ/100 ML BAG IV SCH (14:20)
[2025-03-16] MEDS: POTASSIUM CL SA 10 MEQ TAB PO ONE (18:02)
[2025-03-16] MEDS: POTASSIUM 25 MEQ EFFERV TAB PO ONE (22:02)
[2025-03-17 00:45] LABS: Anion Gap 9.5 mEq/L (5.0-15.0); BUN Blood Urea Nitrogen 3.0 mg/dL (7-18); Glucose Level 90.0 mg/dL (74-106)
[2025-03-17 00:48] LABS: Potassium 2.5 mEq/L (3.5-5.1)
[2025-03-17] MEDS: POTASSIUM 25 MEQ EFFERV TAB PO ONE ×2 (01:06→09:14)
[2025-03-17 05:47] LABS: Absolute Lymphocytes (CBC) 2.5 K/uL (0.7-4.9); Hematocrit 36.7 % (36.0-45.0); Hemoglobin 12.8 g/dL (12.0-15.0); MCH 30.9 pg (27.0-35.0); MCHC 34.9 g/dL (32.0-36.0); MCV 88.5 fL (80-100); MPV 7.8 fL (7.6-11.3); Nucleated RBC Absolute Count 0.0 (0-0); Nucleated Red Blood Cells % 0.0 % (0-0); RBC Red Blood Cell Count 4.15 M/uL (3.86-4.86); White Blood Count 8.40 thou/uL (4.3-10.9)
[2025-03-17 06:03] LABS: ALT/SGPT 25.0 U/L (13-56); AST/SGOT 22.0 U/L (15-37); Albumin 3.8 g/dL (3.4-5.0); Albumin/Globulin Ratio 1.1 (1.1-1.8); Alkaline Phosphatase 46.0 U/L (45-117); Anion Gap 9.2 mEq/L (5.0-15.0); BUN Blood Urea Nitrogen 4.0 mg/dL (7-18); Globulin 3.5 g/dL (2.3-3.5); Glucose Level 111.0 mg/dL (74-106); Magnesium 2.2 mg/dL (1.6-2.4); Potassium 3.2 mEq/L (3.5-5.1)
--- NOTE | 2025-03-17 08:47 | P.DS ---
Admission Date: 03/16/25 Discharge Date: 03/17/25 Disposition: ROUTINE DISCHARGE Discharge Condition: GOOD Reason for Admission: Intractable Nausea /vomiting Brief History of Present Illness: 19yo F, PMH: Darrel's disease Patient brought to ER with intractable nausea and vomiting and abdominal discomfort which has been going on for the last 2 days and has been progressively getting worse and was brought to the ER. Patient had multiple ER visits for the same complaint but was not getting better. Denies any chest pain shortness of breath. No diarrhea. No sick contacts. Patient was assessed in the ER and found to have UTI and hypokalemia and was admitted for further management Hospital Course: Problem List: Intractable nausea/vomiting, resolved Abdominal pain, improved Hypokalemia Hx of Darrel's Disease Physician discharge instructions: 19yo F presented with persistent nausea/vomiting associated with abdominal pain for ~3 days. She has gone to 3-4 ERs/Urgent cares in the last 3 days due to this issue. Had some improvement and discharged home, then symptoms returned which would lead her to seeking more help. She reports being told she had low potassium and CT noted a small ovarian cyst. She was told she likely has a UTI and was given antibiotics. She reports no UTI symptoms recently. Abdominal pain was more upper/mid abdominal pain. had a slightly similar but less severe episode 2-3 days ago as well that has resolved. Labwork in the ER here was notable for mild leukocytosis (12k) and hypokalemia. CT abd/pelvis from day before only notable for the cyst, no other acute findings. She was admitted and treated with IV fluids, empiric antibiotics (Azactam given penicillin allergy). She reported significant improvement in her abdominal pain and nausea the following morning. Her diet was advanced. Electrolytes were replaced. No definitive UTI / bacterial infectious process idenitified. She remained afebrile and leukocytosis also resolved. 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 TSH / free t4 were normal here. (TSH: 2.55, Free T4: 1.32). No other signs/symptoms of thyrotoxicosis. Episode seems most likely secondary to a self-limited viral gastroenteritis - possibly exacerbated by start of menses. She does typically have a severe 1st day of menstrual cramping/pain, although pain is typically different. Medications: No changes in meds /no new prescriptions Follow up: PCP within 1 week Please call to schedule / confirm appointments Physical Exam: GEN: Alert, oriented, NAD CV: Regular rate and rhythm, no edema Pulm: Nonlabored respirations on room air, clear bilaterally ABD: soft, nontender, nondistended Neuro: Normal speech, normal affect Vital Signs/Physical Exam: Temp Pulse Resp BP Pulse Ox 98.1 F 80 17 119/79 98 03/17/25 04:00 03/17/25 04:00 03/17/25 04:00 03/17/25 04:00 03/17/25 04:00 Laboratory Data at Discharge: WBC 8.40 thou/uL (4.3-10.9) 03/17/25 05:35 Hgb 12.8 g/dL (12.0-15.0) 03/17/25 05:35 Hct 36.7 % (36.0-45.0) 03/17/25 05:35 Plt Count 345 thou/uL (152-406) 03/17/25 05:35 Sodium 140 mEq/L (136-145) 03/17/25 05:35 Potassium 3.2 mEq/L (3.5-5.1) L D 03/17/25 05:35 BUN 4 mg/dL (7-18) L 03/17/25 05:35 Creatinine 0.67 mg/dL (0.55-1.02) 03/17/25 05:35 Glucose 111 mg/dL (74-106) H 03/17/25 05:35 Phosphorus 2.1 mg/dL (2.5-4.9) L 03/16/25 11:43 Magnesium 2.2 mg/dL (1.6-2.4) 03/17/25 05:35 Total Bilirubin 0.9 mg/dL (0.2-1.0) 03/17/25 05:35 AST 22 U/L (15-37) 03/17/25 05:35 ALT 25 U/L (13-56) 03/17/25 05:35 Alkaline Phosphatase 46 U/L (45-117) 03/17/25 05:35 Home Medications: NK [No Home Meds] 03/16/25 Physician Discharge Instructions: 19yo F presented with persistent nausea/vomiting associated with abdominal pain for ~3 days. She has gone to 3-4 ERs/Urgent cares in the last 3 days due to this issue. Had some improvement and discharged home, then symptoms returned which would lead her to seeking more help. She reports being told she had low potassium and CT noted a small ovarian cyst. She was told she likely has a UTI and was given antibiotics. She reports no UTI symptoms recently. Abdominal pain was more upper/mid abdominal pain. had a slightly similar but less severe episode 2-3 days ago as well that has resolved. Labwork in the ER here was notable for mild leukocytosis (12k) and hypokalemia. CT abd/pelvis from day before only notable for the cyst, no other acute findings. She was admitted and treated with IV fluids, empiric antibiotics (Azactam given penicillin allergy). She reported significant improvement in her abdominal pain and nausea the following morning. Her diet was advanced. Electrolytes were replaced. No definitive UTI / bacterial infectious process idenitified. She remained afebrile and leukocytosis also resolved. 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 TSH / free t4 were normal here. (TSH: 2.55, Free T4: 1.32). No other signs/symptoms of thyrotoxicosis. Episode seems most likely secondary to a self-limited viral gastroenteritis - possibly exacerbated by start of menses. She does typically have a severe 1st day of menstrual cramping/pain, although pain is typically different. Medications: No changes in meds /no new prescriptions Follow up: PCP within 1 week Followup: Norberto LIUOT [Primary Care Provider] -
[2025-03-17] MEDS: ONDANSETRON 4 MG (ODT) TAB PO ONE (09:14)
[2025-03-17 09:38] VITALS: BP 128/73; TEMP 98
[2025-03-17 10:28] VITALS: O2SAT 98
== END 2025-03-17 09:30 | disposition home or self-care (01) | DRG 392 ==
LOC: ER 22:04 → ERHOLD 03-16 00:42 → 4TH 03-16 10:18
PROVIDERS: ADMIT Family Medicine; ATTEND Hospitalist
DX: A08.4 Viral intestinal infection, unspecified (principal); E87.6 Hypokalemia; N83.201 Unspecified ovarian cyst, right side; Z88.5 Allergy status to narcotic agent; Z88.0 Allergy status to penicillin; Z56.0 Unemployment, unspecified; Z88.1 Allergy status to other antibiotic agents; Z59.82 Transportation insecurity; Z59.71 Insufficient health insurance coverage
CPT/HCPCS: 36415; 80048; 80053; 81003; 82024; 82533; 83735; 84100; 84439; 84443; 85025; 87086; 87088; 99285; J0696; J1790; J2405; J2550; J3480; J7030; J7799; Q0162